=== PATIENT | female | born 1950 | race Caucasian/White ===

== ENCOUNTER 2016-10-01 16:36 | Inpatient (IN) | payer MEDICARE, OTHER ==
--- NOTE | ~2016-10-01 | HP ---
History And Physical [facility] [address] [place]. [address] NAME: MICHAEL CHIN : 52 STATUS : ADM IN [facility]#: [id number] AGE: 66 ADM/REG DATE : 10/01/16 MR#: [id number] REPORT SERV DATE: 10/02/16 DICTATED BY: LON BARFIELD DATE: 10/01/16 REPORT STATUS : Draft TRANSCRIBED BY: MODL DATE: 10/01/16 DATE OF ADMISSION: 10/01/2016 HISTORY OF PRESENT ILLNESS: The patient is a 66-year-old female with a history of hypertension, COPD, diabetes type 2, and heart failure, who is a direct transfer from [facility]. The patient states that about one week ago a feeling of weakness and generally feeling unwell, so she decided to present to her primary care physician. The patient states that she was diagnosed with upper respiratory tract infection and was started on steroids and antibiotics. The patient states that upon starting to take the p.o. antibiotics, she developed nausea and started vomiting. She says that initially her vomit was yellowish-green in color; however, later on it cleared up. She denies any food particles or any bleeding in the vomitus. The patient states that she has been vomiting for five days when she decided to present to the emergency room. Upon presentation to the emergency room, the patient states chest x-ray was done and there was a concern for pneumonia like picture. Also, while in the emergency room the patient states that she developed a chest pain, which she states was located in the epigastric region with no radiation. Describes the pain as crampy, localized in the epigastrium with no radiation. States that she was given nitroglycerin with subsequent resolution of her symptoms. While in the emergency room, preliminary workup included a troponin which was elevated at 0.07, repeat had trended down to 0.06. However, given elevated troponin providers there felt that the patient might need a cardiac workup and decided to transfer the patient to [facility]. At the time of my evaluation, the patient denied any sick contacts. She denies any fevers, any chills. She denied any lightheadedness or dizziness. She did report generally feeling weak and some nausea, which has responded to medications. She also reports vomiting and diarrhea for the past four days. She currently says her chest pain status post nitroglycerin. She currently has no chest pain. She denies any palpitations. The patient is chronically short of breath for which she wears supplemental oxygen 24-hour basis. REVIEW OF SYSTEMS: 12-point review of systems was performed. All systems were negative except as noted in the HPI. PAST MEDICAL HISTORY: 1. Hypertension. 2. COPD. 3. Diabetes type 2. 4. Heart failure. PAST SURGICAL HISTORY: 1. Hysterectomy. 2. Cholecystectomy. FAMILY HISTORY: Significant for, 1. COPD. 2. CVA. 3. Diabetes type 2. History And Physical [address] [address] NAME: MICHAEL CHIN : 52 STATUS : ADM IN [facility]#: [id number] AGE: 66 ADM/REG DATE : 10/01/16 MR#: [id number] REPORT SERV DATE: 10/02/16 DICTATED BY: LON BARFIELD DATE: 10/01/16 REPORT STATUS : Draft TRANSCRIBED BY: SARAH DATE: 10/01/16 4. Heart failure. The patient states that multiple family members have COPD. Father of complications of COPD. Mother of complications of a CVA. SOCIAL HISTORY: The patient reports a 129-pack year smoking history. She stated that alcohol she quit several years ago. When she was using alcohol, she used in the social setting. She denies any illicit drug use. The patient currently lives with son and [id number] at home. ALLERGIES: THE PATIENT IS ALLERGIC TO SULFA MEDICATION. PHYSICAL EXAMINATION: VITAL SIGNS: No vitals available at this time. However, the patient appears hemodynamically stable. GENERAL: The patient lying in bed, wearing nasal cannula with normal respiratory effort. The patient speaking in full and complete sentences. HEENT: Normocephalic, atraumatic. Her eyes appear sunken, however, pupils round and reactive to light and accommodation. Extraocular motors intact. The patient appears mildly pale. The patient is edentulous. NECK: Trachea midline and symmetric. No JVD noted. No thyromegaly present. CHEST: Nontender to palpation. CARDIOVASCULAR: Regular rate and rhythm S1, S2. No murmurs, rubs, or gallops. LUNGS: Decreased breath sounds globally with positive wheezing noted on all lung coon. ABDOMEN: Positive bowel sounds. Nontender, nondistended. EXTREMITIES: No cyanosis, no clubbing, no edema. NEUROLOGIC: Alert and oriented x3. No focal deficits appreciated. LABS: Per labs obtained from outside facility WBC 11.8, hemoglobin 14.0, hematocrit 42.7 with an MCV of 86.4, platelets 349. Sodium 140, potassium 3.5, chloride 100, bicarb 30, BUN 12, creatinine 0.8, glucose of 111. BNP 27. Troponin 0.07. Chest x-ray impression, severe emphysema with no focal consolidation. ASSESSMENT AND PLAN: 1. Nausea and vomiting. Unclear etiology. Start Zofran q.6 h. p.r.n. Monitor chest pain. The patient reports pain located in the epigastric area in the setting of nausea and vomiting likely etiology of the pain is more likely GI related. However, we will continue pain management and trend troponins. High elevated troponin likely due to stress versus demand ischemia. We will trend troponin and monitor hypertension. We will restart patient on home medications, chronic obstructive pulmonary disease. The patient currently on O2 supplementation. We will place patient on Solu-Medrol 40 mg IV q.8 h., DuoNeb q.4 h., and continue supplemental oxygen. 2. Heart failure compensated. The patient is currently euvolemic. We will place the patient on a 1500 mL per day fluid restriction. 3. Monitor diabetes type 2. We will check hemoglobin A1c and also place the patient on sliding scale insulin for now. History And Physical [address] [address] NAME: MICHAEL CHIN : 52 STATUS : ADM IN [facility]#: [id number] AGE: 66 ADM/REG DATE : 10/01/16 MR#: [id number] REPORT SERV DATE: 10/02/16 DICTATED BY: LON BARFIELD DATE: 10/01/16 REPORT STATUS : Draft TRANSCRIBED BY: MODL DATE: 10/01/16 Greater than about 50 minutes was spent on admitting the patient. NATHAN/SARAH Lon Barfield MD / [id number] CC: MD Milton Camara Stacey
--- NOTE | ~2016-10-01 | DS ---
Discharge Summary [facility] [address] [place]. [address] NAME: MICHAEL CHIN : 52 STATUS : DIS IN PAT#: [id number] AGE: 66 ADM/REG DATE : 10/01/16 MR#: [id number] REPORT SERV DATE: 10/04/16 DICTATED BY: LON BARFIELD DATE: 10/03/16 REPORT STATUS : Draft TRANSCRIBED BY: MODL DATE: 10/03/16 ADMISSION DATE: 10/01/2016 DISCHARGE DATE: 10/03/2016 The patient is a 66-year-old female with a history of hypertension, COPD, diabetes type 2, who was transferred from [facility] with a complaint of chest pain. For further details please refer to H and P dictated by me on 10/02/2016. HOSPITAL COURSE: Upon presentation to the hospital, review of labs from the previous hospital noted troponin elevated at 0.07. At the time of my evaluation of the patient, she denied any chest pain, and reported that her nausea and vomiting were resolved. Given that the concern for transfer to [facility] was for cardiac evaluation. Her troponin was repeated and a OSBALDO was also ordered. Given that the patient was not in volume overload at the time of presentation, she denied any chest pain and did have any cardiac symptoms, Cardiology referral was held. Her troponin was trended with her troponin returning to normal levels. Given her history of COPD exacerbation at the time of presentation, the patient was not in any evidence of exacerbation. She is chronically on oxygen supplementation and reports that at baseline she wheezes which was supported on physical exam. However, given that she was in the hospital, the patient was empirically placed on IV steroids. Antibiotics were held because there were no indication for antibiotic therapy. The patient remained hemodynamically stable. A TTE ordered noted normal systolic function with aortic regurgitation. Her calculated ELLEN score at the time of presentation was 2, placing the patient at a low risk. Given resolution of symptoms, given her hemodynamic stability, and given her normal echo, the patient will subsequently be discharged today to follow up with her primary care physician. The patient also reports her symptoms have resolved and she is now back to baseline. Given resolution of her symptoms and hemodynamic stability, the patient will be discharged home to follow up with her primary care physician in five to seven days. Plan has been discussed with the patient, who voices understanding and is agreeable with this plan. DISCHARGE DIAGNOSES: 1. Nausea and vomiting. 2. Chest pain. 3. Hypertension. 4. Diabetes type 2. 5. Dyslipidemia. DISCHARGE PHYSICAL EXAMINATION: VITAL SIGNS: Blood pressure 171/79 with a pulse of 77, respirations 20, and O2 saturation 97% on 2 L of oxygen. GENERAL: The patient is lying in bed, in no acute distress. Speaking in full sentences with normal respiratory effort, wearing nasal cannula. HEENT: Normocephalic and atraumatic. Extraocular motors intact. Moist oral mucosa. Pupils round and reactive to light and accommodation. NECK: Trachea midline and symmetric. No JVD noted. No thyromegaly present. No lymphadenopathy noted. CHEST: Nontender to palpation. Discharge Summary [address] [address] NAME: MICHAEL CHIN : 52 STATUS : DIS IN PAT#: [id number] AGE: 66 ADM/REG DATE : 10/01/16 MR#: [id number] REPORT SERV DATE: 10/04/16 DICTATED BY: LON BARFIELD DATE: 10/03/16 REPORT STATUS : Draft TRANSCRIBED BY: SARAH DATE: 10/03/16 CARDIOVASCULAR: Regular rate and rhythm. S1, S2. I did not appreciate any murmurs, rubs, or gallops. LUNGS: The patient with normal respiratory effort. Equal lung and chest expansions noted. Wheezing noted globally. ABDOMEN: Positive bowel sounds. Nontender. Nondistended. No masses palpated. EXTREMITIES: No cyanosis, no clubbing, no edema. NEUROLOGIC: Alert and oriented x3. No focal deficits appreciated. DISCHARGE MEDICATIONS: 1. Aspirin 81 mg p.o. daily. 2. Diclofenac 25 mg p.o. daily. 3. Vitamin D 5,000 units p.o. daily. 4. Folic acid 2 mg p.o. daily. 5. Lasix 20 mg p.o. daily. 6. Lisinopril 10 mg p.o. daily. 7. Lopressor 25 mg p.o. daily. 8. Atorvastatin 40 mg p.o. daily. 9. Theophylline 300 mg p.o. twice a day. 10.Estrace 0.5 mg p.o. daily. 11.Sitagliptin HC/metformin 10/999 mg ER one tablet p.o. daily. IMAGING STUDIES: A transthoracic echocardiography report summary. Overall quality of study is poor and Definity contrast was injected to enhance endocardial delineation. Left ventricular systolic function intact, estimated at 60%. Left ventricular diastolic function intact. Right ventricle systolic function intact. Mild aortic regurgitation. No previous study to compare. DISPOSITION: The patient will be discharged home to follow up with primary care physician in five to seven days. ACTIVITY: As tolerated. DIET: Diabetic diet. Greater than 30 minutes were spent providing counseling, patient coordinating discharge, discussion of care with nursing staff, medication reconciliation, dictation of note. NATHAN/SARAH Lon Barfield MD / [id number] CC: Discharge Summary [address] [address] NAME: MICHAEL CHIN : 52 STATUS : DIS IN PAT#: [id number] AGE: 66 ADM/REG DATE : 10/01/16 MR#: [id number] REPORT SERV DATE: 10/04/16 DICTATED BY: LON BARFIELD DATE: 10/03/16 REPORT STATUS : Draft TRANSCRIBED BY: SARAH DATE: 10/03/16 MD Ilsa Camara MD
[2016-10-01] MEDS ORDERED: LOP25 PO (17:37)
[2016-10-01] MEDS ORDERED: PRIN2.5 PO (17:38)
[2016-10-01] MEDS ORDERED: ESTRACE0.5 MG PO (17:38)
[2016-10-01] MEDS ORDERED: L20 PO (17:38)
[2016-10-01] MEDS ORDERED: T300 PO (17:38)
[2016-10-01] MEDS ORDERED: ZOCOR10 PO (17:39)
[2016-10-01] MEDS ORDERED: D 5000 PO (17:39)
[2016-10-01] MEDS ORDERED: ASAB PO (17:39)
[2016-10-01] MEDS ORDERED: KOMBIGLYZE XR1 EAC1 PO (17:39)
[2016-10-01] MEDS ORDERED: FOLIC PO (17:39)
[2016-10-01] MEDS ORDERED: VOLT75 PO (17:39)
[2016-10-01] MEDS ORDERED: FLOVENT220 INH (17:40)
[2016-10-01] MEDS ORDERED: DUONEB INH (17:40)
[2016-10-01] MEDS ORDERED: PROVHFA INH (17:40)
[2016-10-01 18:43] LABS: BASOPHILS 0.2 %; BASOPHILS ABSOLUTE 0.01 10/3/uL (0.0-0.16); EOSINOPHILS 0 %; HEMATOCRIT 40.5 % (36.0-48.0); HEMOGLOBIN 13.5 g/dL (12.0-16.0); IMMATURE GRANULOCYTES 0.8 %; IMMATURE GRANULOCYTES ABSOLUTE 0.04 10/3/uL (0.0-0.11); LYMPHOCYTES 17.8 %; LYMPHOCYTES ABSOLUTE 0.94 10/3/uL (0.67-4.30); MEAN CORPUS HGB CONC 33.3 g/dL (32.0-36.0); MEAN CORPUSCULAR VOLUME 87.1 fL (80-100); MEAN PLATELET VOLUME 9.9 fL (9.2-13.0); MONOCYTES 0.8 %; MONOCYTES ABSOLUTE 0.04 10/3/uL (0.21-1.20); NEUTROPHILS 80.4 %; NEUTROPHILS ABSOLUTE 4.25 10/3/uL (2.02-8.40); PLATELET COUNT 312 10/3/uL (150-400); RED CELL COUNT 4.65 10/6/uL (4.0-5.6); WHITE BLOOD CELLS 5.3 10/3/uL (4.5-10.5)
[2016-10-01 18:46] LABS: MANUAL DIFF NO %
[2016-10-01 19:06] LABS: A/G RATIO 0.8 (0.7-1.9); ALBUMIN 3.2 G/DL (3.5-5.0); ALKALINE PHOSPHATASE 75 U/L (45-117); BUN (BLOOD UREA NITROGEN) 14 MG/DL (6-23); CALCIUM, SERUM 9.7 MG/DL (8.5-10.4); CHLORIDE, SERUM 105 MMOL/L (96-112); CO2 (CARBON DIOXIDE) 27 MMOL/L (24-34); CREATININE 0.75 MG/DL (0.55-1.02); FREE T4 1.54 NG/DL (0.76-1.46); GFR AFRICAN AMERICAN 97 ML/MIN (>=60); GFR NON AFRICAN AMERICAN 84 ML/MIN (>=60); GLOBULIN 4.1 G/DL (2.5-4.1); GLUCOSE, SERUM 138 MG/DL (60-99); POTASSIUM, SERUM 4.1 MMOL/L (3.5-5.3); SGOT(AST) 12 U/L (5-40); SGPT(ALT) 11 U/L (5-65); SODIUM, SERUM 142 MMOL/L (135-148); TOTAL BILIRUBIN 0.3 MG/DL (0-1.2); TOTAL PROTEIN 7.3 G/DL (6.0-8.5); ULTRASENSITIVE TSH 0.514 MCIU/ML (0.358-3.740)
[2016-10-01 19:09] LABS: TROPONIN I 0.05 NG/ML (<0.05)
[2016-10-01 22:04] LABS: THEOPHYLLINE 22.8 MCG/ML (8.0-15.0)
[2016-10-02 07:19] LABS: BASOPHILS 0 %; EOSINOPHILS 0 %; HEMATOCRIT 40.4 % (36.0-48.0); HEMOGLOBIN 13.5 g/dL (12.0-16.0); IMMATURE GRANULOCYTES 0.7 %; IMMATURE GRANULOCYTES ABSOLUTE 0.05 10/3/uL (0.0-0.11); LYMPHOCYTES 12.4 %; LYMPHOCYTES ABSOLUTE 0.87 10/3/uL (0.67-4.30); MEAN CORPUS HGB CONC 33.4 g/dL (32.0-36.0); MEAN CORPUSCULAR HEMOGLOB 28.9 pg (26.0-34.0); MEAN CORPUSCULAR VOLUME 86.5 fL (80-100); MEAN PLATELET VOLUME 10.6 fL (9.2-13.0); MONOCYTES 4.9 %; MONOCYTES ABSOLUTE 0.34 10/3/uL (0.21-1.20); NEUTROPHILS ABSOLUTE 5.75 10/3/uL (2.02-8.40); PLATELET COUNT 299 10/3/uL (150-400); RBC DISTRIBUTION WIDTH 13.9 % (12.0-16.0); RED CELL COUNT 4.67 10/6/uL (4.0-5.6)
[2016-10-02 07:20] LABS: MANUAL DIFF NO %
[2016-10-02 07:32] LABS: A/G RATIO 0.8 (0.7-1.9); ALBUMIN 3.1 G/DL (3.5-5.0); ALKALINE PHOSPHATASE 67 U/L (45-117); CALCIUM, SERUM 9.7 MG/DL (8.5-10.4); CHLORIDE, SERUM 107 MMOL/L (96-112); CHOL/HDL RATIO(NOT ORDER) 1.5 (0-5); CHOLESTEROL 167 MG/DL (< 200); CO2 (CARBON DIOXIDE) 24 MMOL/L (24-34); CREATININE 0.71 MG/DL (0.55-1.02); GFR AFRICAN AMERICAN 104 ML/MIN (>=60); GFR NON AFRICAN AMERICAN 89 ML/MIN (>=60); GLOBULIN 4.1 G/DL (2.5-4.1); GLUCOSE, SERUM 138 MG/DL (60-99); HDL CHOLESTEROL 115 MG/DL (> 49); LDL CHOLESTEROL 33 MG/DL (< 130); NON-HDL CHOLESTEROL 52 MG/DL (< 160); POTASSIUM, SERUM 4.2 MMOL/L (3.5-5.3); SGPT(ALT) 10 U/L (5-65); SODIUM, SERUM 142 MMOL/L (135-148); TOTAL BILIRUBIN 0.1 MG/DL (0-1.2); TOTAL PROTEIN 7.2 G/DL (6.0-8.5); TRIGLYCERIDE 98 MG/DL (< 150); TROPONIN I 0.03 NG/ML (<0.05)
[2016-10-02 07:33] LABS: BUN (BLOOD UREA NITROGEN) 19 MG/DL (6-23); SGOT(AST) 12 U/L (5-40)
[2016-10-03 06:06] LABS: HEMATOCRIT 41.2 % (36.0-48.0); HEMOGLOBIN 13.7 g/dL (12.0-16.0); MEAN CORPUS HGB CONC 33.3 g/dL (32.0-36.0); MEAN CORPUSCULAR HEMOGLOB 29.4 pg (26.0-34.0); MEAN CORPUSCULAR VOLUME 88.4 fL (80-100); MEAN PLATELET VOLUME 10.5 fL (9.2-13.0); PLATELET COUNT 339 10/3/uL (150-400); RBC DISTRIBUTION WIDTH 14.1 % (12.0-16.0); RED CELL COUNT 4.66 10/6/uL (4.0-5.6)
[2016-10-03 06:08] LABS: MANUAL DIFF YES %; WHITE BLOOD CELLS 11.9 10/3/uL (4.5-10.5)
[2016-10-03 06:25] LABS: A/G RATIO 0.8 (0.7-1.9); ALBUMIN 3.3 G/DL (3.5-5.0); ALKALINE PHOSPHATASE 69 U/L (45-117); BUN (BLOOD UREA NITROGEN) 26 MG/DL (6-23); CALCIUM, SERUM 10.1 MG/DL (8.5-10.4); CHLORIDE, SERUM 102 MMOL/L (96-112); CO2 (CARBON DIOXIDE) 31 MMOL/L (24-34); CREATININE 0.96 MG/DL (0.55-1.02); GFR AFRICAN AMERICAN 72 ML/MIN (>=60); GFR NON AFRICAN AMERICAN 62 ML/MIN (>=60); GLOBULIN 4.2 G/DL (2.5-4.1); GLUCOSE, SERUM 132 MG/DL (60-99); POTASSIUM, SERUM 4.3 MMOL/L (3.5-5.3); SGOT(AST) 10 U/L (5-40); SGPT(ALT) 11 U/L (5-65); SODIUM, SERUM 139 MMOL/L (135-148); TOTAL BILIRUBIN 0.2 MG/DL (0-1.2); TOTAL PROTEIN 7.5 G/DL (6.0-8.5)
[2016-10-03 06:43] LABS: IMMATURE GRANS ABSOLUTE (CALC) 0.12 10/3/uL (0.0-0.11); LYMPHOCYTES 11 %; LYMPHOCYTES ABSOLUTE (CALC) 1.43 10/3/uL (0.67-4.30); METAMYELOCYTES 1 %; NEUTROPHILS ABSOLUTE (CALC) 10.35 10/3/uL (2.02-8.40); SEGMENTED NEUTROPHIL (0) 87 %; TOTAL NUCLEATED CELLS 100
[2016-10-03 06:44] LABS: MONOCYTES 1 %; PLATELET ESTIMATE ADQ (ADEQUATE); RBC MORPHOLOGY NORM (NORMAL)
[2016-10-04] MEDS ORDERED: VOLT25 PO (15:21)
[2016-10-04] MEDS ORDERED: PRIN10 PO (15:22)
[2016-10-04] MEDS ORDERED: LIPITOR40 PO (15:23)
== END 2016-10-03 15:01 | disposition home or self-care (01) | DRG 313 ==
LOC: 7NO 16:36
PROVIDERS: Hospitalist
DX: R07.9 Chest pain, unspecified (principal); I24.8 Other forms of acute ischemic heart disease; Z99.81 Dependence on supplemental oxygen; J44.9 Chronic obstructive pulmonary disease, unspecified; R11.2 Nausea with vomiting, unspecified; Z87.891 Personal history of nicotine dependence; E11.9 Type 2 diabetes mellitus without complications; I35.1 Nonrheumatic aortic (valve) insufficiency; E78.5 Hyperlipidemia, unspecified; I10 Essential (primary) hypertension
CPT/HCPCS: 80053; 80061; 80198; 82962; 83036; 84439; 84443; 84484; 85025; 94640; A9270-GY; C8929; J2920; Q9957

== ENCOUNTER 2016-10-04 06:25 | Inpatient (IN) | payer MEDICARE, OTHER ==
--- NOTE | ~2016-10-04 | IDS ---
Interim Discharge Summary [facility] [address] [place]. [address] NAME: MICHAEL CHIN : 52 STATUS : ADM IN [facility]#: [id number] AGE: 66 ADM/REG DATE : 10/04/16 MR#: [id number] REPORT SERV DATE: 10/14/16 DICTATED BY: PERI WHITE DATE: 10/13/16 REPORT STATUS : Draft TRANSCRIBED BY: MODJosé DATE: 10/13/16 ADMISSION DATE: 10/04/2016 DISCHARGE DATE: Discharge date is pending. ADMISSION DIAGNOSIS: Non-ST elevation myocardial infarction. CURRENT DIAGNOSES: 1. Acute hypercapnic respiratory failure with hypercapnia. 2. Chronic obstructive pulmonary disease exacerbation. 3. Non-ST elevation myocardial infarction. 4. Hypertension. 5. Diabetes mellitus. 6. Leukocytosis. 7. Diabetes mellitus type 2. CURRENT CONDITION: Stable. HISTORY OF PRESENT ILLNESS: For detailed HPI, please make reference to Dr. Michele Amin's dictation on 10/04/2016. In brief, this is a 66-year-old lady who presented to the hospital with complaints of severe shortness of breath and chest tightness. In the ER, the patient was found to have blood pressure of 116/68, temperature of 97.8, respiratory rate in the 20s, and heart rate 119 beats per minute. Physical exam was noted for bibasilar expiratory wheezes with use of accessory muscles. LABORATORY DATA: Significant for troponin of 2.5, creatinine is 0.8, hemoglobin of 15.9, white blood cell count of 18,000. Chest x-ray showed no acute cardiopulmonary disease. An assessment of NSTEMI was made in the ER. The patient was admitted to the Hospitalist Service. HOSPITAL COURSE: 1. NSTEMI. The patient was started on heparin drip. Beta blockers were added. Cardiology was consulted. The patient underwent cardiac catheterization that showed non-occlusive coronary artery disease. The patient was advised to continue aspirin, beta letty, and statin and CAREN inhibitors. Presently, the patient has no further episodes of chest pain and currently no further episode of chest pain. Cardiology has currently signed off. 2. Acute on chronic hypercapnic respiratory failure. The patient has extensive history of COPD with emphysematous changes, the patient is currently receiving IV levofloxacin and prednisone. The patient continued to receive Brovana, Spiriva, prednisone 40 mg p.o., and levofloxacin. The patient's sputum culture grew gram-negative organisms. Speciation and sensitivity is pending at this time. Pulmonology was consulted on 10/13/2016, due to concerns of worsening persistent wheezing as well as need for possible pulmonary rehab. Pulmonary recommended to continue current treatment plan and continue to monitor for improvement in respiratory status. Interim Discharge Summary [address] [address] NAME: MICHAEL CHIN : 52 STATUS : ADM IN PAT#: [id number] AGE: 66 ADM/REG DATE : 10/04/16 MR#: [id number] REPORT SERV DATE: 10/14/16 DICTATED BY: PERI WHITE DATE: 10/13/16 REPORT STATUS : Draft TRANSCRIBED BY: SARAH DATE: 10/13/16 3. Leukocytosis secondary due to steroids on presentation to the hospital. The patient's WBC was 5.3 with steroid treatment. The patient's white blood cell continued to increase to 22 and remained stable. The patient has no fever and no chills. No other source of infection at this time. A repeat procalcitonin is less than 0.05. Repeat UA is normal and blood cultures are pending at this time. 4. Diabetes mellitus. The patient was taking alogliptin benzoate for blood sugar control. I have discontinued this medication and placed the patient on Levemir and sliding scale insulin for tight blood sugar control. 5. Hypertension. Blood pressure remained stable. CURRENT CONDITION: Stable. DISCHARGE DATE: Pending. DISCHARGE DISPOSITION: Pending. ROSEO/SARAH Peri White MD / [id number] CC: MD PIOTR Mayfield STACEY
--- NOTE | ~2016-10-04 | CN ---
Consultation Report [facility] [address] [place]. [address] NAME: MICHAEL CHIN : 52 STATUS : ADM IN PAT#: [id number] AGE: 66 ADM/REG DATE : 10/04/16 MR#: [id number] REPORT SERV DATE: 10/13/16 DICTATED BY: AZAM KNIGHT DATE: 10/13/16 REPORT STATUS : Draft TRANSCRIBED BY: MODJosé DATE: 10/13/16 CONSULTATION DATE OF CONSULTATION: Thank you for the opportunity to consult on this patient. HISTORY OF PRESENT ILLNESS: Ms. Chin is a 66-year-old woman with chronic significant COPD, who presented with worsening shortness of breath after a recent hospitalization earlier this month for acute exacerbation of her COPD. She has had difficulty coughing up sputum and more dyspnea. She has had no chest pain or hemoptysis. PAST MEDICAL HISTORY: Significant for COPD, diabetes, hypertension. PAST SURGICAL HISTORY: She has a remote cholecystectomy, remote hysterectomy. SOCIAL HISTORY: Significant for being a former smoker with a 36-acng-fele history and she quit about six years ago. FAMILY HISTORY: Positive for coronary artery disease and COPD, also for cerebrovascular disease. REVIEW OF SYSTEMS: Review of 10 systems was performed and was positive for what was noted above. PHYSICAL EXAMINATION: GENERAL: On exam, she is awake and alert, appearing chronically ill, but in no acute respiratory distress. HEENT: Normocephalic, atraumatic. NECK: Supple. No lymphadenopathy. No JVD. CHEST: Symmetric with good expansion bilaterally. LUNGS: Have a prolonged expiratory phase, but right now, she is moving air fairly well. CARDIOVASCULAR: She has S1 and S2, which are regular rate and rhythm. ABDOMEN: Benign. EXTREMITIES: She has no edema, no clubbing, no cyanosis. ASSESSMENT AND PLAN: Acute exacerbation of chronic bronchitis: She has emphysema, predominantly upper lobes on a recent CT scan of the chest and some chronic parenchymal changes, but no acute new pulmonary infiltrates. She has as noted above acute exacerbation, already on good therapy with prednisone and Levaquin. She is on Spiriva and at home, she uses a nebulizer. We agree with continuing the Spiriva and the Pulmicort and Brovana and we will try and add Daliresp to her regimen. She is alone most of the day on continuous chronic supplemental oxygen, since her son works in second shift, so she might benefit from consideration of inpatient pulmonary rehabilitation. We will monitor her with you. Please do not hesitate to contact me if I could be of any further assistance. Consultation Report [place] [id number] [address] NAME: MICHAEL CHIN : 52 STATUS : ADM IN PAT#: [id number] AGE: 66 ADM/REG DATE : 10/04/16 MR#: [id number] REPORT SERV DATE: 10/13/16 DICTATED BY: AZAM KNIGHT DATE: 10/13/16 REPORT STATUS : Draft TRANSCRIBED BY: SARAH DATE: 10/13/16 CB/SARAH Azam Knight M.D. / [id number] CC: MD Ilsa Mayfield MD
--- NOTE | ~2016-10-04 | HP ---
History And Physical [facility] [address] [place]. [address] NAME: MICHAEL CHIN : 52 STATUS : ADM IN PAT#: [id number] AGE: 66 ADM/REG DATE : 10/04/16 MR#: [id number] REPORT SERV DATE: 10/04/16 DICTATED BY: LON BARFIELD DATE: 10/04/16 REPORT STATUS : Draft TRANSCRIBED BY: MODL DATE: 10/04/16 DATE OF ADMISSION: 10/04/2016 CHIEF COMPLAINT: "I felt like I was smothering and I had severe shortness of breath." HISTORY: The patient is a 66-year-old female with a history of hypertension, COPD, diabetes type 2 who was recently discharged from the hospital after being transferred from [facility] with a complaint of epigastric chest pain. During that admission, the patient came in with a troponin of 0.6 which trended down to less than 0.2. TTE was ordered which showed normal LV function and right ventricular function with a mild aortic regurgitation. At the time of that presentation, the patient did not complain of chest pain, had returned to her baseline 2 L oxygen requirement, and was saturating appropriately. The patient was subsequently discharged. Upon getting home, the patient stated she was doing well. However at about midnight, the patient states while she was lying in bed she felt smothered and had severe shortness of breath, prompting her to present to [facility]. Workup there noted that the patient was in COPD exacerbation and also workup noted troponin significantly elevated at 2.67. [facility] was contacted, and the patient was transferred to [facility] for further evaluation. Upon arrival at [facility], given her elevated troponin and complains of new onset chest pain, the patient was started on heparin drip. The patient was started on heparin drip. At the time of my evaluation, the patient complained of chest pain located on the left chest. She states that this is the first time she is having this kind of pain, describes the pain as sharp with no alleviating or relieving factors. Denies any radiation. Rates the pain as an 8/10 in severity and states that the pain has been constant. She also complains of shortness of breath stating that she feels very anxious. She states that when she went home at night she felt anxious again which triggered her symptoms. REVIEW OF SYSTEMS: Fourteen-point review of systems was performed. All systems were negative except as noted in the HPI. PAST MEDICAL HISTORY: 1. COPD. 2. Diabetes type 2. 3. Hypertension. PAST SURGICAL HISTORY: 1. Cholecystectomy. 2. Hysterectomy. FAMILY HISTORY: Significant for 1. COPD. 2. CVA. 3. Diabetes type 2. 4. Hypertension. 5. Heart failure. History And Physical [address] [address] NAME: MICHAEL CHIN : 52 STATUS : ADM IN PAT#: [id number] AGE: 66 ADM/REG DATE : 10/04/16 MR#: [id number] REPORT SERV DATE: 10/04/16 DICTATED BY: LON BARFIELD DATE: 10/04/16 REPORT STATUS : Draft TRANSCRIBED BY: SARAH DATE: 10/04/16 SOCIAL HISTORY: The patient currently lives at home with son and daughter in-law. She reports a 29 pack year smoking history. Denies any illicit drug use. States that she quit alcohol use several years ago. PHYSICAL EXAMINATION: GENERAL: The patient lying in bed, appears stated age, noted to have increased work of breathing, in mild distress. HEENT: Normocephalic, atraumatic. Extraocular motors intact. Oral mucosa moist. NECK: Trachea midline and symmetric. No JVD noted. CHEST: Nontender to palpation. CARDIOVASCULAR: Regular rate and rhythm. S1, S2. No murmurs, rubs, or gallops. LUNGS: The patient has increased work of breathing, equal chest expansion noted. Wheezes noted in the lung coon globally. ABDOMEN: Positive bowel sounds. Nontender. Nondistended. No masses palpated. Positive bowel sounds. EXTREMITIES: No cyanosis. No clubbing. No edema. NEUROLOGIC: Alert and oriented x3. No focal deficits appreciated. LABS: Obtained at [facility] significant for a troponin of 2.67. Labs pending. ASSESSMENT AND PLAN: 1. Chronic obstructive pulmonary disease exacerbation likely triggered by anxiety. The patient has no evidence of infection. So no antibiotic therapy indicated. Plan, we will start patient on Solu-Medrol 40 mg IV q.8 hours, DuoNeb q.4 hours. Continue supplemental oxygen. 2. Abk-OD-ppzoaggyt myocardial infarction. The patient has a ELLEN score of 4 indicating high risk for all-cause mortality. Troponin elevated at 2.67. Plan, we will trend troponin. Start the patient on heparin drip. Morphine for pain control. We will load the patient with aspirin and Plavix. Cardiology consult. Given patient's elevated ELLEN score, the patient will benefit from heart catheterization this admission, but we will defer that decision to cardiology stress test. 3. Anxiety. The patient currently on Xanax at home for anxiety. We will continue home medications. 4. Hypertension, currently controlled. 5. Diabetes type 2. Controlled. A1c less than 6, on oral antihyperglycemics. 6. Code status. The patient wishes to remain full code. 7. Deep vein thrombosis. The patient currently on therapeutic anticoagulation. NATHAN/SARAH Lon Barfield MD / [id number] History And Physical [address] [address] NAME: MICHAEL CHIN : 52 STATUS : ADM IN PAT#: [id number] AGE: 66 ADM/REG DATE : 10/04/16 MR#: [id number] REPORT SERV DATE: 10/04/16 DICTATED BY: LON BARFIELD DATE: 10/04/16 REPORT STATUS : Draft TRANSCRIBED BY: SARAH DATE: 10/04/16 CC: Lon Barfield MD
--- NOTE | ~2016-10-04 | CN ---
Consultation Report [facility] [address] [place]. [address] NAME: FERNANDA CHIN : 52 STATUS : ADM IN PAT#: [id number] AGE: 66 ADM/REG DATE : 10/04/16 MR#: [id number] REPORT SERV DATE: 10/04/16 DICTATED BY: VIKTOR CLEMENTS III DATE: 10/04/16 REPORT STATUS : Draft TRANSCRIBED BY: SARAH DATE: 10/04/16 DATE OF CONSULTATION: 10/04/2016 HISTORY OF PRESENT ILLNESS: Mrs. Fernanda Chin is a 66-year-old white female from [place], [place], referred for evaluation of an acute wzw-SV-sihvyih elevation myocardial infarction. The patient has a history of chest pain. The patient stated that she has undergone cardiac catheterization. According to the patient, coronary angiography demonstrated insignificant disease. The patient did well until 10/01/2016. At that time, the patient noted the onset of dull substernal chest pain at rest accompanied by dyspnea. The patient was subsequently seen by the emergency medical service. The patient's chest pain was relieved with sublingual nitroglycerin. The patient was subsequently admitted to [facility] with a chronic obstructive pulmonary disease exacerbation. The patient's COPD exacerbation was treated. The patient did not undergo cardiovascular risk stratification. The patient was discharged on 10/03/2016. The patient did well until the day of admission. At that time, the patient was seen in the [facility] Emergency Room with increased dyspnea and a blood pressure of 176/111 mmHg. The patient's 12-lead electrocardiogram demonstrated poor R-wave progression, suggesting a remote anteroseptal myocardial infarction. The patient's B-type natriuretic peptide level was 521 pg/mL, CK level was 95, CK-MB level was 22.9, and troponin I was 2.67 ng/mL. A chest radiograph demonstrated evidence of chronic obstructive pulmonary disease and chronic interstitial changes. The patient was subsequently transferred to [facility] for further evaluation and therapy. The patient has a history of dull left precordial chest pains, exacerbated by deep inspiration and palpation. The patient also complained of occasional palpitations and dependent bilateral pedal edema. The patient denied sacral edema, syncope, hip claudication, and lower extremity claudication. The patient has no history of rheumatic fever or cardiac murmur. The patient's documented coronary artery disease risk factors include family history, diabetes mellitus, obesity, hyperlipoproteinemia, and hypertension. PAST MEDICAL HISTORY: 1. Type 2 diabetes mellitus. 2. Obesity. 3. Hyperlipoproteinemia. 4. Hypertension. 5. Chronic obstructive pulmonary disease. 6. Chronic anxiety. 7. Gastroesophageal reflux. 8. Arthritis. 9. OS early nuclear cataract. OPERATIVE PROCEDURES: 1. Status post abdominal hysterectomy with bilateral salpingo-oophorectomy and an incidental appendectomy. 2. Status post laparoscopic cholecystectomy. Consultation Report [address] [place]. [address] NAME: FERNANDA CHIN : 52 STATUS : ADM IN [facility]#: [id number] AGE: 66 ADM/REG DATE : 10/04/16 MR#: [id number] REPORT SERV DATE: 10/04/16 DICTATED BY: VIKTOR CLEMENTS III DATE: 10/04/16 REPORT STATUS : Draft TRANSCRIBED BY: SARAH DATE: 10/04/16 ALLERGIES: SULFA MEDICATIONS. MEDICATIONS: 1. Albuterol-ipratropium bromide per nebulizer q.i.d. 2. Albuterol MDI two puffs q.4 hours, p.r.n. 3. Aspirin 81 mg p.o. daily. 4. Vitamin D 5000 units p.o. daily. 5. Diclofenac 75 mg p.o. daily. 6. Estradiol 0.5 mg p.o. daily. 7. Fluticasone propionate one puff q.6 hours, p.r.n. 8. Folic acid 2 mg p.o. daily. 9. Furosemide 20 mg p.o. daily. 10.Lisinopril 10 mg p.o. daily. 11.Metoprolol tartrate 25 mg p.o. daily. 12.Saxagliptin/metformin 10/999 mg p.o. daily. 13.Atorvastatin 40 mg p.o. at bedtime. 14.Theophylline ER 300 mg p.o. b.i.d. 15.Clopidogrel 75 mg p.o. daily. 16.Intravenous heparin per weight-adjusted nomogram. 17.Sliding scale insulin. 18.Methylprednisolone 40 mg IV q.8 hours. FAMILY HISTORY: Positive for myocardial infarction, hypertension, diabetes mellitus, stroke, and anemia. Negative for seizures, cancer, kidney disease, liver disease, arthritis, and mental illness. SOCIAL HISTORY: The patient discontinued cigarette smoking approximately six years prior to this admission. The patient discontinued beer drinking approximately two years prior to this admission. PHYSICAL EXAMINATION: GENERAL: Examination demonstrated an alert, older white female, in moderate respiratory distress. VITAL SIGNS: Demonstrated a temperature of 97.8 orally, respiratory rate of 20 breaths per minute, and a blood pressure of 116/68 mmHg with a heart rate of 119 beats per minute. SKIN: Warm and dry. There were diffuse nonpigmented abdominal striae. NECK: Supple and nontender. There was decreased range of motion. There was no appreciable lymphadenopathy or thyromegaly. There was no jugular venous distention at 90 degrees. There were no carotid bruits. BACK: Examination of the back demonstrated no spinal or costovertebral angle tenderness. CHEST: Examination of the chest demonstrated decreased breath sounds throughout. There were bibasilar expiratory wheezes. There were no appreciable crackles, rhonchi, or pleural rubs. There was symmetrical expansion of the chest. There was use of the accessary muscles of respiration. Consultation Report [facility] [id number] [facility] [place]. [address] NAME: FERNANDA CHIN : 52 STATUS : ADM IN [facility]#: [id number] AGE: 66 ADM/REG DATE : 10/04/16 MR#: [id number] REPORT SERV DATE: 10/04/16 DICTATED BY: VIKTOR CLEMENTS III DATE: 10/04/16 REPORT STATUS : Draft TRANSCRIBED BY: SARAH DATE: 10/04/16 CARDIAC: Examination demonstrated a nonpalpable apical impulse. There was a tachycardic regular rhythm and rate. There was no discernible murmur, rub, gallop, or midsystolic click. There were no thrills or heaves. There was no hepatojugular reflux. ABDOMEN: Examination of the abdomen demonstrated that it was mildly obese, soft, and nontender. There was no appreciable hepatosplenomegaly or masses. Bowel sounds were intact. There were no abdominal or femoral bruits. EXTREMITIES: Examination of the extremities demonstrated that they were symmetrical. There was decreased range of motion. There was no cyanosis, clubbing, or edema. Pulses were 2+ and equal at the radial, femoral, and dorsalis pedis arteries. The posterior tibial pulses were trace to nonpalpable. LABORATORY DATA: Serum laboratory studies demonstrated a white blood cell count of 18,000, hemoglobin 15.9, hematocrit 48.4, and a platelet count of 395,000. The sodium was 138, potassium 3.5, chloride 101, bicarbonate 28, BUN 25, and creatinine was 0.80. The troponin I level was 2.5. ASSESSMENT: Mrs. Fernanda Chin is a 66-year-old white female with five other risk factors for coronary atherosclerotic disease (i.e. family history, diabetes mellitus, obesity, hyperlipoproteinemia, hypertension), history of angiographically insignificant epicardial coronary artery disease and unstable angina progressing to an acute llr-EG-zrhvpoo elevation myocardial infarction-acute coronary syndrome. I agree with initiation of therapy with aspirin, clopidogrel, intravenous heparin, metoprolol, lisinopril, high-intensity atorvastatin, and sublingual nitroglycerin. I would recommend cardiac catheterization and consideration of revascularization. Options, potential risks, and benefits were discussed with the patient. The patient accepted these risks and wished to proceed. KVNG/SARAH Viktor Clmeents III, M.D., [facility], [facility] / [id number] CC: Michele Amin MD
--- NOTE | ~2016-10-04 | DS ---
Discharge Summary [facility] [place] [id number] [place]. [address] NAME: MICHAEL CHIN : 52 STATUS : DIS IN PAT#: [id number] AGE: 66 ADM/REG DATE : 10/04/16 MR#: [id number] REPORT SERV DATE: 10/17/16 DICTATED BY: JOYCE GIBSON DATE: 10/16/16 REPORT STATUS : Draft TRANSCRIBED BY: MODL DATE: 10/16/16 ADMISSION DATE: 10/04/2016 DISCHARGE DATE: 10/16/2016 DISCHARGE DIAGNOSES: 1. Acute on chronic hypoxic respiratory failure. The patient is stable with her home oxygen use. 2. Diabetes mellitus, stable. 3. Chronic obstructive pulmonary disease exacerbation. Her sputum culture came back positive with a Stenotrophomonas. The patient is put on Bactrim dose from Dr. De Santiago. 4. Non ST-elevation myocardial infarction secondary to hypoxic respiratory failure. HISTORY OF PRESENT ILLNESS: This is a 66-year-old female patient, who has significant lung disease, emphysema, came to the hospital with short of breath. Please see dictated H and P. HOSPITAL COURSE: She was admitted to hospital with COPD exacerbation, hypoxic respiratory failure. The patient was put on systemic steroid, and empiric antibiotics. She tolerated well. Her sputum culture came back positive with a Stenotrophomonas. Dr. De Santiago has been following this patient, and put her on the Bactrim treatment. She has been tolerating very well. She had a hypotensive episode with the lisinopril while she was in the hospital. Lisinopril was discontinued and continued on the Lopressor for hypertension treatment. Overall, had a stable hospitalization. She is maintaining satisfactory oxygen status with her home oxygen dose. Evaluated by Physical Therapy, recommended Rehab Facility. The patient will be discharged to rehab for ongoing pulmonary inpatient rehab. DISCHARGE MEDICATION: 1. Lipitor 40 mg once at nighttime. 2. Vitamin D once a day. 3. Aspirin 81 mg once a day. 4. Estradiol 0.5 mg once a day. 5. Folic acid 2 mg once a day. 6. Lasix 20 mg once a day. 7. Lopressor 12.5 mg twice a day. 8. Daliresp 500 mg once a day. 9. Bactrim one tablet twice a day for seven days. 10.Prednisone tapering dose. 11.Kombiglyze/metformin 10/999 mg once a day. 12.Albuterol inhaler as needed. 13.Flovent one puff every 12 hours. 14.DuoNeb four times a day. 15.Lisinopril was discontinued. Discharge Summary [address] [address] NAME: MICHAEL CHIN : 52 STATUS : DIS IN PAT#: [id number] AGE: 66 ADM/REG DATE : 10/04/16 MR#: [id number] REPORT SERV DATE: 10/17/16 DICTATED BY: JOYCE GIBSON DATE: 10/16/16 REPORT STATUS : Draft TRANSCRIBED BY: SARAH DATE: 10/16/16 DISPOSITION: The patient is discharged to rehab. TIME SPENT: More than 30 minutes. EKL/MODL Joyce Gibson M.D. / [id number] CC: Michael Majano MD
[~2016-10-04 06:25] MED LIST: ASAB PO; D 5000 PO; DUONEB INH; ESTRACE0.5 MG PO; FLOVENT220 INH; FOLIC PO; KOMBIGLYZE XR1 EAC1 PO; L20 PO; LOP25 PO; PRIN2.5 PO; PROVHFA INH; T300 PO; VOLT75 PO; ZOCOR10 PO
[2016-10-04 08:59] LABS: BASOPHILS 0.1 %; BASOPHILS ABSOLUTE 0.01 10/3/uL (0.0-0.16); EOSINOPHILS 0 %; HEMOGLOBIN 15.9 g/dL (12.0-16.0); IMMATURE GRANULOCYTES 1.1 %; LYMPHOCYTES 8.4 %; LYMPHOCYTES ABSOLUTE 1.52 10/3/uL (0.67-4.30); MEAN CORPUS HGB CONC 32.9 g/dL (32.0-36.0); MEAN CORPUSCULAR HEMOGLOB 29.2 pg (26.0-34.0); MEAN PLATELET VOLUME 10.4 fL (9.2-13.0); MONOCYTES 2.2 %; NEUTROPHILS 88.2 %; NEUTROPHILS ABSOLUTE 15.87 10/3/uL (2.02-8.40); PLATELET COUNT 395 10/3/uL (150-400); RBC DISTRIBUTION WIDTH 14.1 % (12.0-16.0); RED CELL COUNT 5.44 10/6/uL (4.0-5.6)
[2016-10-04 09:01] LABS: HEMATOCRIT 48.4 % (36.0-48.0); MANUAL DIFF NO %
[2016-10-04 09:14] LABS: A/G RATIO 0.8 (0.7-1.9); ALBUMIN 3.5 G/DL (3.5-5.0); BUN (BLOOD UREA NITROGEN) 26 MG/DL (6-23); CALCIUM, SERUM 9.7 MG/DL (8.5-10.4); CHLORIDE, SERUM 101 MMOL/L (96-112); CO2 (CARBON DIOXIDE) 31 MMOL/L (24-34); CREATININE 0.95 MG/DL (0.55-1.02); GFR AFRICAN AMERICAN 73 ML/MIN (>=60); GFR NON AFRICAN AMERICAN 63 ML/MIN (>=60); GLOBULIN 4.4 G/DL (2.5-4.1); GLUCOSE, SERUM 157 MG/DL (60-99); POTASSIUM, SERUM 4.1 MMOL/L (3.5-5.3); SGOT(AST) 24 U/L (5-40); SGPT(ALT) 13 U/L (5-65); SODIUM, SERUM 140 MMOL/L (135-148); TOTAL BILIRUBIN 0.2 MG/DL (0-1.2); TOTAL PROTEIN 7.9 G/DL (6.0-8.5)
[2016-10-04 09:23] LABS: ALKALINE PHOSPHATASE 81 U/L (45-117)
[2016-10-04 12:15] LABS: PROTIME (NOT ORD) 13.5 SEC (12.0-14.5)
[2016-10-04 12:22] LABS: A/G RATIO 0.9 (0.7-1.9); ALBUMIN 3.4 G/DL (3.5-5.0); ALKALINE PHOSPHATASE 74 U/L (45-117); BUN (BLOOD UREA NITROGEN) 25 MG/DL (6-23); CHLORIDE, SERUM 101 MMOL/L (96-112); CO2 (CARBON DIOXIDE) 28 MMOL/L (24-34); GFR AFRICAN AMERICAN 90 ML/MIN (>=60); GFR NON AFRICAN AMERICAN 77 ML/MIN (>=60); GLUCOSE, SERUM 191 MG/DL (60-99); POTASSIUM, SERUM 3.5 MMOL/L (3.5-5.3); SGOT(AST) 23 U/L (5-40); SGPT(ALT) 12 U/L (5-65); SODIUM, SERUM 138 MMOL/L (135-148); TOTAL BILIRUBIN 0.2 MG/DL (0-1.2); TOTAL PROTEIN 7.4 G/DL (6.0-8.5)
[2016-10-04 13:49] LABS: ALLENS TEST Pos; BE (BASE EXCESS) 0.7 MEQ/L (0 +/- 2.5); CARBOXYHEMOGLOBIN 0.3 % (0-3); HCO3 (ACTUAL BICARBONATE) 24.9 MEQ/L (23-27); HEMOBLOGIN CONTENT 16.1 G/DL (12-16); INSTRUMENT SERIAL # 35151; METHEMOGLOBIN 0.6 % (0-3); O2 CONTENT 21.2 VOL% (18-24); PCO2 (CO2 TENSION) 39 MMHG (35-45); PO2 (O2 TENSION) 75 MMHG (79-93); SAMPLE Arterial; pH 7.43 (7.37-7.43)
[2016-10-04] MEDS ORDERED: VOLT25 PO (15:21)
[2016-10-04] MEDS ORDERED: PRIN10 PO (15:22)
[2016-10-04] MEDS ORDERED: LIPITOR40 PO (15:23)
[2016-10-04 20:21] LABS: CARBOXYHEMOGLOBIN 0.3 % (0-3); DEVICE NC; HCO3 (ACTUAL BICARBONATE) 27.5 MEQ/L (23-27); HEMOBLOGIN CONTENT 15.9 G/DL (12-16); INSTRUMENT SERIAL # 35151; METHEMOGLOBIN 0.6 % (0-3); O2 CONTENT 21.4 VOL% (18-24); OPERATOR ID 16503; PCO2 (CO2 TENSION) 46 MMHG (35-45); PO2 (O2 TENSION) 90 MMHG (79-93); SAMPLE Arterial
[2016-10-04 20:22] LABS: ALLENS TEST Pos
[2016-10-05 05:31] LABS: HEMATOCRIT 42.5 % (36.0-48.0); HEMOGLOBIN 14.1 g/dL (12.0-16.0); MEAN CORPUS HGB CONC 33.2 g/dL (32.0-36.0); MEAN CORPUSCULAR HEMOGLOB 29.3 pg (26.0-34.0); MEAN CORPUSCULAR VOLUME 88.2 fL (80-100); MEAN PLATELET VOLUME 10.2 fL (9.2-13.0); NUCLEATED RED BLOOD CELLS 0.4 /100WBC (0-0); PLATELET COUNT 339 10/3/uL (150-400); RBC DISTRIBUTION WIDTH 14.5 % (12.0-16.0); RED CELL COUNT 4.82 10/6/uL (4.0-5.6); WHITE BLOOD CELLS 15.9 10/3/uL (4.5-10.5)
[2016-10-05 05:32] LABS: MANUAL DIFF YES %
[2016-10-05 05:41] LABS: A/G RATIO 0.9 (0.7-1.9); BUN (BLOOD UREA NITROGEN) 24 MG/DL (6-23); CALCIUM, SERUM 9.1 MG/DL (8.5-10.4); CHLORIDE, SERUM 106 MMOL/L (96-112); CO2 (CARBON DIOXIDE) 29 MMOL/L (24-34); CREATININE 0.77 MG/DL (0.55-1.02); GFR AFRICAN AMERICAN 94 ML/MIN (>=60); GFR NON AFRICAN AMERICAN 81 ML/MIN (>=60); GLOBULIN 3.2 G/DL (2.5-4.1); POTASSIUM, SERUM 3.8 MMOL/L (3.5-5.3); SGOT(AST) 14 U/L (5-40); SGPT(ALT) 12 U/L (5-65); SODIUM, SERUM 142 MMOL/L (135-148); TOTAL BILIRUBIN 0.2 MG/DL (0-1.2); TOTAL PROTEIN 6.2 G/DL (6.0-8.5)
[2016-10-05 05:45] LABS: ALKALINE PHOSPHATASE 58 U/L (45-117); GLUCOSE, SERUM 145 MG/DL (60-99)
[2016-10-05 06:10] LABS: BAND NEUTROPHILS 1 %; LYMPHOCYTES 10 %; LYMPHOCYTES ABSOLUTE (CALC) 1.59 10/3/uL (0.67-4.30); MONOCYTES 4 %; MONOCYTES ABSOLUTE (CALC) 0.64 10/3/uL (0.21-1.20); NEUTROPHILS ABSOLUTE (CALC) 13.67 10/3/uL (2.02-8.40); PLATELET ESTIMATE ADQ (ADEQUATE); RBC MORPHOLOGY NORM (NORMAL); SEGMENTED NEUTROPHIL (0) 85 %; TOTAL NUCLEATED CELLS 100
[2016-10-06 04:16] LABS: HEMATOCRIT 44.6 % (36.0-48.0); HEMOGLOBIN 14.9 g/dL (12.0-16.0); MEAN CORPUS HGB CONC 33.4 g/dL (32.0-36.0); MEAN CORPUSCULAR HEMOGLOB 29.6 pg (26.0-34.0); MEAN CORPUSCULAR VOLUME 88.5 fL (80-100); MEAN PLATELET VOLUME 10.3 fL (9.2-13.0); PLATELET COUNT 395 10/3/uL (150-400); RBC DISTRIBUTION WIDTH 14.6 % (12.0-16.0); RED CELL COUNT 5.04 10/6/uL (4.0-5.6); WHITE BLOOD CELLS 17.9 10/3/uL (4.5-10.5)
[2016-10-06 04:17] LABS: MANUAL DIFF YES %
[2016-10-06 04:30] LABS: A/G RATIO 0.9 (0.7-1.9); ALBUMIN 3.3 G/DL (3.5-5.0); ALKALINE PHOSPHATASE 65 U/L (45-117); CALCIUM, SERUM 9.2 MG/DL (8.5-10.4); CHLORIDE, SERUM 107 MMOL/L (96-112); CO2 (CARBON DIOXIDE) 27 MMOL/L (24-34); GFR AFRICAN AMERICAN 105 ML/MIN (>=60); GFR NON AFRICAN AMERICAN 91 ML/MIN (>=60); GLOBULIN 3.6 G/DL (2.5-4.1); GLUCOSE, SERUM 148 MG/DL (60-99); POTASSIUM, SERUM 3.9 MMOL/L (3.5-5.3); SGOT(AST) 15 U/L (5-40); SGPT(ALT) 18 U/L (5-65); SODIUM, SERUM 144 MMOL/L (135-148); TOTAL BILIRUBIN 0.2 MG/DL (0-1.2); TOTAL PROTEIN 6.9 G/DL (6.0-8.5)
[2016-10-06 04:32] LABS: BUN (BLOOD UREA NITROGEN) 29 MG/DL (6-23)
[2016-10-06 04:33] LABS: TROPONIN I 0.31 NG/ML (<0.05)
[2016-10-06 04:54] LABS: BAND NEUTROPHILS 1 %; INTERNATIONAL NORMAL RATI 1.1 UNITS (-); LYMPHOCYTES 12 %; LYMPHOCYTES ABSOLUTE (CALC) 2.15 10/3/uL (0.67-4.30); MONOCYTES 1 %; MONOCYTES ABSOLUTE (CALC) 0.18 10/3/uL (0.21-1.20); NEUTROPHILS ABSOLUTE (CALC) 15.57 10/3/uL (2.02-8.40); PLATELET ESTIMATE ADQ (ADEQUATE); PROTIME (NOT ORD) 13.9 SEC (12.0-14.5); RBC MORPHOLOGY NORM (NORMAL); SEGMENTED NEUTROPHIL (0) 86 %; TOTAL NUCLEATED CELLS 100
[2016-10-06 05:51] LABS: ALLENS TEST Pos; BE (BASE EXCESS) 1.8 MEQ/L (0 +/- 2.5); BIPAP 14/8 cm.H2O; CARBOXYHEMOGLOBIN 0.1 % (0-3); HCO3 (ACTUAL BICARBONATE) 27.8 MEQ/L (23-27); INSTRUMENT SERIAL # 11843; METHEMOGLOBIN 0.3 % (0-3); O2 CONTENT 19.1 VOL% (18-24); PCO2 (CO2 TENSION) 49 MMHG (35-45); PO2 (O2 TENSION) 102 MMHG (79-93); SAMPLE Arterial; pH 7.37 (7.37-7.43)
[2016-10-07 03:53] LABS: HEMATOCRIT 40.5 % (36.0-48.0); HEMOGLOBIN 13.2 g/dL (12.0-16.0); MANUAL DIFF YES %; MEAN CORPUS HGB CONC 32.6 g/dL (32.0-36.0); MEAN CORPUSCULAR HEMOGLOB 29.1 pg (26.0-34.0); MEAN CORPUSCULAR VOLUME 89.4 fL (80-100); PLATELET COUNT 317 10/3/uL (150-400); RBC DISTRIBUTION WIDTH 14.3 % (12.0-16.0); RED CELL COUNT 4.53 10/6/uL (4.0-5.6); WHITE BLOOD CELLS 13.2 10/3/uL (4.5-10.5)
[2016-10-07 03:59] LABS: INTERNATIONAL NORMAL RATI 1.1 UNITS (-); PROTIME (NOT ORD) 14.2 SEC (12.0-14.5)
[2016-10-07 04:10] LABS: PARTIAL THROMBO TIME > 150.0 SEC (22.5-37.2)
[2016-10-07 04:11] LABS: CALCIUM, SERUM 9.4 MG/DL (8.5-10.4); CHLORIDE, SERUM 105 MMOL/L (96-112); CO2 (CARBON DIOXIDE) 31 MMOL/L (24-34); CREATININE 0.75 MG/DL (0.55-1.02); GFR AFRICAN AMERICAN 97 ML/MIN (>=60); GFR NON AFRICAN AMERICAN 84 ML/MIN (>=60); GLUCOSE, SERUM 141 MG/DL (60-99); POTASSIUM, SERUM 3.8 MMOL/L (3.5-5.3); SODIUM, SERUM 141 MMOL/L (135-148)
[2016-10-07 04:18] LABS: BUN (BLOOD UREA NITROGEN) 39 MG/DL (6-23)
[2016-10-07 05:10] LABS: BAND NEUTROPHILS 2 %; IMMATURE GRANS ABSOLUTE (CALC) 0.26 10/3/uL (0.0-0.11); LYMPHOCYTES 13 %; LYMPHOCYTES ABSOLUTE (CALC) 1.72 10/3/uL (0.67-4.30); METAMYELOCYTES 2 %; MONOCYTES 1 %; NEUTROPHILS ABSOLUTE (CALC) 11.22 10/3/uL (2.02-8.40); SEGMENTED NEUTROPHIL (0) 82 %; TOTAL NUCLEATED CELLS 100
[2016-10-07 05:11] LABS: ANISOCYTOSIS 1+ (5-10/OIF) (0-5/OIF); PLATELET ESTIMATE ADQ (ADEQUATE)
[2016-10-08 04:04] LABS: BASOPHILS 0.1 %; BASOPHILS ABSOLUTE 0.01 10/3/uL (0.0-0.16); EOSINOPHILS 0 %; HEMATOCRIT 40.3 % (36.0-48.0); IMMATURE GRANULOCYTES 2.1 %; IMMATURE GRANULOCYTES ABSOLUTE 0.29 10/3/uL (0.0-0.11); LYMPHOCYTES 7.2 %; LYMPHOCYTES ABSOLUTE 0.99 10/3/uL (0.67-4.30); MEAN CORPUS HGB CONC 32.3 g/dL (32.0-36.0); MEAN CORPUSCULAR HEMOGLOB 29.1 pg (26.0-34.0); MEAN CORPUSCULAR VOLUME 90.2 fL (80-100); MEAN PLATELET VOLUME 10.4 fL (9.2-13.0); MONOCYTES 4.7 %; MONOCYTES ABSOLUTE 0.65 10/3/uL (0.21-1.20); NEUTROPHILS 85.9 %; PLATELET COUNT 308 10/3/uL (150-400); RBC DISTRIBUTION WIDTH 14.5 % (12.0-16.0); RED CELL COUNT 4.47 10/6/uL (4.0-5.6); WHITE BLOOD CELLS 13.8 10/3/uL (4.5-10.5)
[2016-10-08 04:06] LABS: MANUAL DIFF NO %
[2016-10-08 04:17] LABS: CHLORIDE, SERUM 105 MMOL/L (96-112); CO2 (CARBON DIOXIDE) 30 MMOL/L (24-34); CREATININE 0.68 MG/DL (0.55-1.02); GFR AFRICAN AMERICAN 106 ML/MIN (>=60); GFR NON AFRICAN AMERICAN 92 ML/MIN (>=60); GLUCOSE, SERUM 166 MG/DL (60-99); PHOSPHORUS, SERUM 3.4 MG/DL (2.5-4.5); SODIUM, SERUM 139 MMOL/L (135-148)
[2016-10-08 04:18] LABS: BUN (BLOOD UREA NITROGEN) 30 MG/DL (6-23); POTASSIUM, SERUM 5.7 MMOL/L (3.5-5.3)
[2016-10-08 10:55] LABS: PROTIME (NOT ORD) 13.5 SEC (12.0-14.5)
[2016-10-08 10:56] LABS: PARTIAL THROMBO TIME 71.9 SEC (22.5-37.2)
[2016-10-09 04:36] LABS: BASOPHILS 0.1 %; BASOPHILS ABSOLUTE 0.01 10/3/uL (0.0-0.16); EOSINOPHILS 0 %; HEMATOCRIT 38.6 % (36.0-48.0); HEMOGLOBIN 12.6 g/dL (12.0-16.0); IMMATURE GRANULOCYTES 1.6 %; IMMATURE GRANULOCYTES ABSOLUTE 0.29 10/3/uL (0.0-0.11); LYMPHOCYTES 5.3 %; LYMPHOCYTES ABSOLUTE 0.94 10/3/uL (0.67-4.30); MEAN CORPUS HGB CONC 32.6 g/dL (32.0-36.0); MEAN CORPUSCULAR VOLUME 88.7 fL (80-100); MEAN PLATELET VOLUME 10.6 fL (9.2-13.0); MONOCYTES 3.8 %; MONOCYTES ABSOLUTE 0.68 10/3/uL (0.21-1.20); NEUTROPHILS 89.2 %; NEUTROPHILS ABSOLUTE 15.86 10/3/uL (2.02-8.40); PLATELET COUNT 286 10/3/uL (150-400); RBC DISTRIBUTION WIDTH 14.7 % (12.0-16.0); RED CELL COUNT 4.35 10/6/uL (4.0-5.6); WHITE BLOOD CELLS 17.8 10/3/uL (4.5-10.5)
[2016-10-09 04:38] LABS: MANUAL DIFF NO %
[2016-10-09 04:47] LABS: CALCIUM, SERUM 9.1 MG/DL (8.5-10.4); CHLORIDE, SERUM 108 MMOL/L (96-112); CO2 (CARBON DIOXIDE) 30 MMOL/L (24-34); CREATININE 0.67 MG/DL (0.55-1.02); GFR AFRICAN AMERICAN 107 ML/MIN (>=60); GFR NON AFRICAN AMERICAN 92 ML/MIN (>=60); PHOSPHORUS, SERUM 3.1 MG/DL (2.5-4.5); POTASSIUM, SERUM 4.3 MMOL/L (3.5-5.3); SODIUM, SERUM 144 MMOL/L (135-148)
[2016-10-09 04:48] LABS: BUN (BLOOD UREA NITROGEN) 25 MG/DL (6-23); GLUCOSE, SERUM 125 MG/DL (60-99)
[2016-10-09 10:54] LABS: PROCALCITONIN <0.05 ng/mL (<0.5)
[2016-10-10 05:05] LABS: BASOPHILS 0.1 %; BASOPHILS ABSOLUTE 0.01 10/3/uL (0.0-0.16); EOSINOPHILS 0 %; HEMATOCRIT 36.4 % (36.0-48.0); HEMOGLOBIN 11.9 g/dL (12.0-16.0); IMMATURE GRANULOCYTES 1.5 %; IMMATURE GRANULOCYTES ABSOLUTE 0.27 10/3/uL (0.0-0.11); LYMPHOCYTES 7.1 %; LYMPHOCYTES ABSOLUTE 1.25 10/3/uL (0.67-4.30); MEAN CORPUS HGB CONC 32.7 g/dL (32.0-36.0); MEAN CORPUSCULAR HEMOGLOB 28.8 pg (26.0-34.0); MEAN CORPUSCULAR VOLUME 88.1 fL (80-100); MEAN PLATELET VOLUME 10.7 fL (9.2-13.0); MONOCYTES 4.9 %; MONOCYTES ABSOLUTE 0.85 10/3/uL (0.21-1.20); NEUTROPHILS 86.4 %; NEUTROPHILS ABSOLUTE 15.11 10/3/uL (2.02-8.40); PLATELET COUNT 276 10/3/uL (150-400); RBC DISTRIBUTION WIDTH 14.8 % (12.0-16.0); RED CELL COUNT 4.13 10/6/uL (4.0-5.6); WHITE BLOOD CELLS 17.5 10/3/uL (4.5-10.5)
[2016-10-10 05:10] LABS: MANUAL DIFF NO %
[2016-10-10 06:21] LABS: BUN (BLOOD UREA NITROGEN) 24 MG/DL (6-23); CALCIUM, SERUM 8.8 MG/DL (8.5-10.4); CHLORIDE, SERUM 109 MMOL/L (96-112); CO2 (CARBON DIOXIDE) 29 MMOL/L (24-34); CREATININE 0.64 MG/DL (0.55-1.02); GFR AFRICAN AMERICAN 109 ML/MIN (>=60); GFR NON AFRICAN AMERICAN 94 ML/MIN (>=60); GLUCOSE, SERUM 135 MG/DL (60-99); PHOSPHORUS, SERUM 2.7 MG/DL (2.5-4.5); POTASSIUM, SERUM 4.3 MMOL/L (3.5-5.3); SODIUM, SERUM 144 MMOL/L (135-148)
[2016-10-11 05:07] LABS: HEMATOCRIT 38.3 % (36.0-48.0); HEMOGLOBIN 12.4 g/dL (12.0-16.0); MEAN CORPUS HGB CONC 32.4 g/dL (32.0-36.0); MEAN CORPUSCULAR HEMOGLOB 28.8 pg (26.0-34.0); MEAN CORPUSCULAR VOLUME 89.1 fL (80-100); MEAN PLATELET VOLUME 10.8 fL (9.2-13.0); PLATELET COUNT 285 10/3/uL (150-400); WHITE BLOOD CELLS 17.9 10/3/uL (4.5-10.5)
[2016-10-11 05:10] LABS: MANUAL DIFF YES %
[2016-10-11 05:16] LABS: BUN (BLOOD UREA NITROGEN) 24 MG/DL (6-23); CALCIUM, SERUM 8.7 MG/DL (8.5-10.4); CHLORIDE, SERUM 106 MMOL/L (96-112); CO2 (CARBON DIOXIDE) 31 MMOL/L (24-34); CREATININE 0.75 MG/DL (0.55-1.02); GFR AFRICAN AMERICAN 97 ML/MIN (>=60); GFR NON AFRICAN AMERICAN 84 ML/MIN (>=60); GLUCOSE, SERUM 138 MG/DL (60-99); PHOSPHORUS, SERUM 2.7 MG/DL (2.5-4.5); POTASSIUM, SERUM 4.3 MMOL/L (3.5-5.3); SODIUM, SERUM 142 MMOL/L (135-148)
[2016-10-11 05:51] LABS: BAND NEUTROPHILS 1 %; LYMPHOCYTES 3 %; LYMPHOCYTES ABSOLUTE (CALC) 0.54 10/3/uL (0.67-4.30); MONOCYTES 4 %; MONOCYTES ABSOLUTE (CALC) 0.72 10/3/uL (0.21-1.20); NEUTROPHILS ABSOLUTE (CALC) 16.65 10/3/uL (2.02-8.40); PLATELET ESTIMATE ADQ (ADEQUATE); RBC MORPHOLOGY NORM (NORMAL); SEGMENTED NEUTROPHIL (0) 92 %; TOTAL NUCLEATED CELLS 100
[2016-10-12 04:59] LABS: BASOPHILS 0.1 %; BASOPHILS ABSOLUTE 0.01 10/3/uL (0.0-0.16); EOSINOPHILS 0 %; HEMATOCRIT 37.8 % (36.0-48.0); HEMOGLOBIN 12.2 g/dL (12.0-16.0); IMMATURE GRANULOCYTES 1.2 %; LYMPHOCYTES ABSOLUTE 0.87 10/3/uL (0.67-4.30); MEAN CORPUS HGB CONC 32.3 g/dL (32.0-36.0); MEAN CORPUSCULAR VOLUME 89.8 fL (80-100); MEAN PLATELET VOLUME 10.8 fL (9.2-13.0); MONOCYTES 4.3 %; MONOCYTES ABSOLUTE 0.74 10/3/uL (0.21-1.20); NEUTROPHILS 89.4 %; NEUTROPHILS ABSOLUTE 15.44 10/3/uL (2.02-8.40); PLATELET COUNT 285 10/3/uL (150-400); RBC DISTRIBUTION WIDTH 14.8 % (12.0-16.0); RED CELL COUNT 4.21 10/6/uL (4.0-5.6); WHITE BLOOD CELLS 17.3 10/3/uL (4.5-10.5)
[2016-10-12 05:01] LABS: MANUAL DIFF NO %
[2016-10-12 05:09] LABS: BUN (BLOOD UREA NITROGEN) 26 MG/DL (6-23); CALCIUM, SERUM 8.7 MG/DL (8.5-10.4); CHLORIDE, SERUM 106 MMOL/L (96-112); CO2 (CARBON DIOXIDE) 32 MMOL/L (24-34); GFR AFRICAN AMERICAN 105 ML/MIN (>=60); GFR NON AFRICAN AMERICAN 91 ML/MIN (>=60); GLUCOSE, SERUM 121 MG/DL (60-99); PHOSPHORUS, SERUM 3.5 MG/DL (2.5-4.5); POTASSIUM, SERUM 4.8 MMOL/L (3.5-5.3); SODIUM, SERUM 142 MMOL/L (135-148)
[2016-10-13 05:13] LABS: HEMATOCRIT 37.9 % (36.0-48.0); HEMOGLOBIN 12.4 g/dL (12.0-16.0); MEAN CORPUS HGB CONC 32.7 g/dL (32.0-36.0); MEAN CORPUSCULAR HEMOGLOB 28.9 pg (26.0-34.0); MEAN CORPUSCULAR VOLUME 88.3 fL (80-100); MEAN PLATELET VOLUME 10.8 fL (9.2-13.0); PLATELET COUNT 314 10/3/uL (150-400); RBC DISTRIBUTION WIDTH 14.9 % (12.0-16.0); RED CELL COUNT 4.29 10/6/uL (4.0-5.6); WHITE BLOOD CELLS 22.8 10/3/uL (4.5-10.5)
[2016-10-13 05:18] LABS: MANUAL DIFF YES %
[2016-10-13 05:29] LABS: BUN (BLOOD UREA NITROGEN) 28 MG/DL (6-23); CHLORIDE, SERUM 105 MMOL/L (96-112); CO2 (CARBON DIOXIDE) 33 MMOL/L (24-34); CREATININE 0.81 MG/DL (0.55-1.02); GFR AFRICAN AMERICAN 88 ML/MIN (>=60); GFR NON AFRICAN AMERICAN 76 ML/MIN (>=60); GLUCOSE, SERUM 103 MG/DL (60-99); PHOSPHORUS, SERUM 3.8 MG/DL (2.5-4.5); POTASSIUM, SERUM 4.2 MMOL/L (3.5-5.3); SODIUM, SERUM 143 MMOL/L (135-148)
[2016-10-13 06:07] LABS: BAND NEUTROPHILS 3 %; LYMPHOCYTES 3 %; LYMPHOCYTES ABSOLUTE (CALC) 0.68 10/3/uL (0.67-4.30); MONOCYTES 4 %; MONOCYTES ABSOLUTE (CALC) 0.91 10/3/uL (0.21-1.20); PLATELET ESTIMATE ADQ (ADEQUATE); RBC MORPHOLOGY NORM (NORMAL); SEGMENTED NEUTROPHIL (0) 90 %; TOTAL NUCLEATED CELLS 100
[2016-10-13 12:42] LABS: ALLENS TEST Pos; CARBOXYHEMOGLOBIN 0.7 % (0-3); HCO3 (ACTUAL BICARBONATE) 26.2 MEQ/L (23-27); HEMOBLOGIN CONTENT 13.4 G/DL (12-16); INSTRUMENT SERIAL # 8083; METHEMOGLOBIN 0.2 % (0-3); O2 CONTENT 17.7 VOL% (18-24); PCO2 (CO2 TENSION) 35 MMHG (35-45); PO2 (O2 TENSION) 71 MMHG (79-93); SAMPLE Arterial; pH 7.49 (7.37-7.43)
[2016-10-13 13:56] LABS: PROCALCITONIN <0.05 ng/mL (<0.5)
[2016-10-13 18:03] LABS: WBC (NOT ORDERED) (RFLEX) 0 (0-5)
[2016-10-13 19:01] LABS: ASCORBIC ACID (UR NOT ORDER) NEG (NEG); BILIRUBIN, URINE NEGATIVE (NEG); KETONE, URINE NEGATIVE (NEG); LEUKOCYTE ESTERASE(NOT OR NEG (NEG)
[2016-10-14 04:52] LABS: BASOPHILS 0.1 %; BASOPHILS ABSOLUTE 0.01 10/3/uL (0.0-0.16); EOSINOPHILS 0.3 %; EOSINOPHILS ABSOLUTE 0.05 10/3/uL (0.0-0.53); HEMATOCRIT 40.2 % (36.0-48.0); HEMOGLOBIN 13.1 g/dL (12.0-16.0); IMMATURE GRANULOCYTES 1.3 %; IMMATURE GRANULOCYTES ABSOLUTE 0.24 10/3/uL (0.0-0.11); LYMPHOCYTES 15.2 %; LYMPHOCYTES ABSOLUTE 2.83 10/3/uL (0.67-4.30); MEAN CORPUS HGB CONC 32.6 g/dL (32.0-36.0); MEAN CORPUSCULAR VOLUME 89.1 fL (80-100); MEAN PLATELET VOLUME 10.4 fL (9.2-13.0); MONOCYTES 10.6 %; MONOCYTES ABSOLUTE 1.97 10/3/uL (0.21-1.20); NEUTROPHILS 72.5 %; NEUTROPHILS ABSOLUTE 13.52 10/3/uL (2.02-8.40); PLATELET COUNT 314 10/3/uL (150-400); RBC DISTRIBUTION WIDTH 14.8 % (12.0-16.0); RED CELL COUNT 4.51 10/6/uL (4.0-5.6); WHITE BLOOD CELLS 18.6 10/3/uL (4.5-10.5)
[2016-10-14 04:55] LABS: MANUAL DIFF NO %
[2016-10-14 05:01] LABS: CHLORIDE, SERUM 103 MMOL/L (96-112); CO2 (CARBON DIOXIDE) 32 MMOL/L (24-34); GFR AFRICAN AMERICAN 78 ML/MIN (>=60); GFR NON AFRICAN AMERICAN 67 ML/MIN (>=60); POTASSIUM, SERUM 3.9 MMOL/L (3.5-5.3); SODIUM, SERUM 143 MMOL/L (135-148)
[2016-10-14 05:26] LABS: BUN (BLOOD UREA NITROGEN) 32 MG/DL (6-23); GLUCOSE, SERUM 82 MG/DL (60-99)
[2016-10-14 06:08] LABS: PROCALCITONIN <0.05 ng/mL (<0.5)
== END 2016-10-16 15:37 | DRG 280 ==
LOC: 7NO 06:25 → CVICU 10-06 04:12 → 5NO 10-09 11:25
PROVIDERS: Hospitalist; Internal Medicine Cardiovascular Disease; Internal Medicine Critical Care Medicine
PROC: 5A09457 Assistance with Respiratory Ventilation, 24-96 Consecutive Hours, Continuous Positive Airway Pressure (ICD-10-PCS; 2016-10-06)
PROC: 4A023N7 Measurement of Cardiac Sampling and Pressure, Left Heart, Percutaneous Approach (ICD-10-PCS; principal; 2016-10-08)
PROC: B2111ZZ Fluoroscopy of Multiple Coronary Arteries using Low Osmolar Contrast (ICD-10-PCS; 2016-10-08)
PROC: B2151ZZ Fluoroscopy of Left Heart using Low Osmolar Contrast (ICD-10-PCS; 2016-10-08)
DX: I21.4 Non-ST elevation (NSTEMI) myocardial infarction (principal); J96.22 Acute and chronic respiratory failure with hypercapnia; E11.9 Type 2 diabetes mellitus without complications; J44.1 Chronic obstructive pulmonary disease with (acute) exacerbation; I10 Essential (primary) hypertension; I25.10 Atherosclerotic heart disease of native coronary artery without angina pectoris; I35.0 Nonrheumatic aortic (valve) stenosis; K21.9 Gastro-esophageal reflux disease without esophagitis; E66.9 Obesity, unspecified; F41.9 Anxiety disorder, unspecified; E87.5 Hyperkalemia; Z68.26 Body mass index [BMI] 26.0-26.9, adult; Z90.710 Acquired absence of both cervix and uterus; Z90.49 Acquired absence of other specified parts of digestive tract; Z98.890 Other specified postprocedural states; Z88.2 Allergy status to sulfonamides; Z79.82 Long term (current) use of aspirin; Z79.899 Other long term (current) drug therapy; Z79.4 Long term (current) use of insulin; Z82.49 Family history of ischemic heart disease and other diseases of the circulatory system; Z83.3 Family history of diabetes mellitus; Z82.3 Family history of stroke; Z87.891 Personal history of nicotine dependence
CPT/HCPCS: 36600; 71010; 71250; 80048; 80053; 80069; 81001; 82330; 82803; 82805; 82947; 82962; 83605; 83735; 83880; 84100; 84132; 84145; 84295; 84484; 85014; 85025; 85347; 85610; 85730; 87070; 87077; 87186; 87205; 93005; 93458; 94640; 94660; 97110-GP; 97116-GP; 97161-GP; A9270-GY; C1760; C1769; C1887; C9113; G8978-CK-GP; G8979-CK-GP; G8980-CJ-GP; J1940; J1956; J2250; J2920; J2930; J3010; Q9967